=== PATIENT | female | born 1960 | race Caucasian/White ===

== ENCOUNTER → 2022-01-21 | Outpatient (CLI) | payer OTHER ==
[~2022-01-21] MED LIST: ADIPEX-P37.5 MG PO; ALLOPURINOL 10100 M1 PO; CEFDINIR300 MG PO; HYDROCODON-ACE1 EAC7 PO; LEVOTHYROXIN0.075 MG PO; PREMPRO 0.625-1 EACH PO; TESSALON PERLE100 MG PO; TRADJENTA5 MG PO; VITAMIN D1000 UNI1 PO
[2022-01-21 10:43] LABS: ABSOLUTE NEUTROPHILS 6.3 thou/uL (1.4-8.2); BASOPHILS 1.4 % (0.0-2.0); EOSINOPHILS 3.1 % (0.0-3.0); HEMATOCRIT 39.3 % (37.0-47.0); HEMOGLOBIN 12.8 gm/dL (12.0-15.0); LYMPHOCYTES 20.5 % (24.0-44.0); MCH 24.9 pg (26.0-34.0); MCHC 32.5 g/dL (28.0-37.0); MCV 76.6 fL (80.0-100.0); MONOCYTES 7.2 % (1.0-8.0); PLATELET COUNT 333 thou/uL (150-400); POLYS 67.8 % (36.0-66.0); RBC 5.14 mil/uL (4.20-5.00); RDW 18.6 % (10.5-14.5); WBC 9.3 thou/uL (4.0-11.0)
[2022-01-21 11:02] LABS: ALBUMIN 3.5 g/dL (3.4-5.0); ANION GAP 6 mmol/L (7-16); BUN 12 mg/dL (7-18); CALCIUM 9.2 mg/dL (8.5-10.1); CHLORIDE 101 mmol/L (98-107); CHOLESTEROL 207 mg/dL (<200); CO2 30 mmol/L (21-32); CREATININE 0.7 mg/dL (0.6-1.0); GLUCOSE 336 mg/dL (74-106); HDL CHOLESTEROL 73 mg/dL (>40); LDL CHOLESTEROL 109 mg/dL (<100); POTASSIUM 4.5 mmol/L (3.5-5.1); SGOT 19 U/L (15-37); SGPT 32 U/L (30-65); SODIUM 137 mmol/L (136-145); TC:HDL 2.8 Ratio (Not establshd); TOTAL BILIRUBIN 0.4 mg/dL (0.2-1.0); TOTAL PROTEIN 7.5 g/dL (6.4-8.2); TRIGLYCERIDE 125 mg/dL (<150); VLDL 25 mg/dL (<40)
[2022-01-21 11:41] LABS: ANISOCYTOSIS 2+
[2022-01-22 06:07] LABS: GLYCOHEMOGLOBIN (HGB A1C) 10.3 % (4.8-5.6)
== END ==
LOC: LAB 10:16
PROVIDERS: ATTEND Nurse Practitioner
DX: E11.9 Type 2 diabetes mellitus without complications (principal)